=== PATIENT | female | born 1985 | race Asian ===

== ENCOUNTER → 2022-03-02 | Outpatient (CLI) | payer OTHER | LOC: COL.PUL 09:19 | DX: J45.909 Unspecified asthma, uncomplicated (principal) ==

== ENCOUNTER → 2022-05-24 | Outpatient (CLI) | payer OTHER | LOC: COL.PUL 09:57 | DX: J45.909 Unspecified asthma, uncomplicated (principal) | CPT/HCPCS: J7674 ==